=== PATIENT | female | born 1935 | race Caucasian/White ===

== ENCOUNTER 2017-09-14 14:35 | Observation (INO) ==
[~2017-09-14 14:35] MED LIST: ASPIRIN EC 81 MG TABLET PO ONE
[2017-09-14 18:02] LABS: Basophils % 0.5 % (0.0-0.8); Eosinophils # 0.2 10*3/uL (0.0-0.87); Eosinophils % 3.5 % (0.00-10.9); Hematocrit 37.9 VOL% (35.7-47.0); Hemoglobin 12.5 GM/DL (12.0-16.0); Immature Granulocytes % 0.3 %; Immature Granulocytes Absolute 0.02 #; Lymphocytes # 1.6 10*3/uL (1.4-4.0); Lymphocytes % 26.1 % (21.3-54.2); Mean Corpuscular Hemoglobin 29 PG (27-34); Mean Corpuscular Volume 88.1 FL (87-102); Mean Platelet Volume 9.8 FL (9.6-12.0); Monocytes # 0.6 10*3/uL (0.11-0.8); Monocytes % 9.3 % (1.7-12.7); Neutrophils # 3.6 10*3/uL (1.4-7.4); Neutrophils % 60.3 % (38.7-73.9); Platelet Count 177 T/CUMM (130-400); Red Cell Distribution Width 12.9 % (9.3-17.3); White Blood Count 5.9 T/CUMM (4-12)
[2017-09-14 18:36] LABS: Albumin 3.5 G/DL (3.4-5.0); Bilirubin,Total 0.5 MG/DL (0.2-1.0); Osmolality,Calculated 281.4 MOS/KG (273-304); Potassium 4.1 MMOL/L (3.5-5.1); Thyroid Stimulating Hormone 0.291 uIU/ml (0.358-3.74); Total Protein 7.5 G/DL (6.4-8.3); Troponin I Only 0.027 NG/ML (0.00-0.045)
[2017-09-14 18:46] LABS: Barbiturates Screen,Urine Negative (Negative); Benzodiazepines Screen,Urine Negative (Negative); Cannabinoid Screen,Urine Negative (Negative); Opiate Screen,Urine Negative (Negative); Phencyclidine Screen,Urine Negative (Negative)
[2017-09-14 19:35] LABS: Apearance,Urine CLEAR (Clear); Bacteria,Urine Occasional /HPF (Few); Bilirubin,Urine Negative (Negative); Blood, Urine Negative (Negative); Glucose,Urine (UA) Negative (Negative); Ketones,Urine Negative (Negative); Mucus,Urine Occasional /LPF (Occasional); Nitrite,Urine Negative (Negative); Protein,Urine Negative; RBC,Urine 1 /HPF (0-4); Renal Epithelial Cells,Urine Occasional /HPF (<1); Urine Color Yellow (Yellow); Urine Specific Gravity 1.008 (1.001-1.035); Urine Urobilinogen < 2.0 EU/DL (0.2-1.0); WBC,Urine 12 /HPF (0-6)
[2017-09-14] MEDS ORDERED: ONDANSETRON 4 MG/2 ML VIAL IV PRN (20:47)
[2017-09-14] MEDS ORDERED: ACETAMINOPHEN 325 MG TABLET PO PRN (20:47)
[2017-09-14] MEDS ORDERED: traZODone 50 MG TABLET PO PRN (20:47)
[2017-09-14] MEDS ORDERED: hydrALAZINE 20 MG/1 ML VIAL IV PRN (20:55)
[2017-09-14] MEDS ORDERED: ENOXAPARIN 40 MG/0.4 ML SYRINGE SUBCUT SCH (21:00)
[2017-09-14] MEDS ORDERED: LEVOFLOXACIN INJ 500 MG in PREMIX 1 EACH IV SCH (22:00)
[2017-09-14] MEDS ORDERED: NIFEdipine 10 MG CAPSULE PO ONE (23:03)
[2017-09-14] MEDS ORDERED: ASPIRIN CHEW 81 MG TABLET PO ONE (23:49)
[2017-09-15] MEDS: ZAFIRLUKAST 20 MG TABLET PO SCH ×2 (00:14→06:32)
[2017-09-15 03:01] LABS: Basophils % 0.3 % (0.0-0.8); Eosinophils # 0.3 10*3/uL (0.0-0.87); Eosinophils % 4.5 % (0.00-10.9); Hematocrit 34.6 VOL% (35.7-47.0); Hemoglobin 11.3 GM/DL (12.0-16.0); Immature Granulocytes % 0.2 %; Immature Granulocytes Absolute 0.01 #; Lymphocytes # 1.3 10*3/uL (1.4-4.0); Mean Corpuscular HGB Conc 32.7 GM/DL (32-36); Mean Corpuscular Hemoglobin 29 PG (27-34); Mean Corpuscular Volume 89.6 FL (87-102); Mean Platelet Volume 9.7 FL (9.6-12.0); Monocytes # 0.7 10*3/uL (0.11-0.8); Monocytes % 11.4 % (1.7-12.7); Neutrophils # 3.8 10*3/uL (1.4-7.4); Neutrophils % 62.6 % (38.7-73.9); Platelet Count 158 T/CUMM (130-400); Red Blood Count 3.86 MC/CUMM (3.8-5.5); Red Cell Distribution Width 12.8 % (9.3-17.3); White Blood Count 6.1 T/CUMM (4-12)
[2017-09-15 03:25] LABS: Calcium 8.3 MG/DL (8.5-10.1); Osmolality,Calculated 283.1 MOS/KG (273-304); Potassium 3.8 MMOL/L (3.5-5.1); Risk Ratio 2.18; VLDL CHOLESTEROL 9.4 MG/DL
[2017-09-15 03:28] LABS: Troponin I Only 0.044 NG/ML (0.00-0.045)
[2017-09-15 03:30] LABS: Troponin I Only 0.047 NG/ML (0.00-0.045)
[2017-09-15 04:14] LABS: Folate 23.5 NG/ML (5.4-24.0); Vitamin B12 933 PG/ML (211-911)
[2017-09-15] MEDS ORDERED: LEVOTHYROXINE 50 MCG TABLET PO SCH (06:30)
[2017-09-15] MEDS ORDERED: ZAFIRLUKAST 20 MG TABLET PO SCH (07:30)
[2017-09-15] MEDS ORDERED: LISINOPRIL 20 MG TABLET PO SCH (09:00)
[2017-09-15] MEDS ORDERED: ASPIRIN EC 81 MG TABLET PO SCH (09:00)
[2017-09-15] MEDS ORDERED: ASCORBIC ACID 500 MG TABLET PO SCH (11:00)
[2017-09-15 11:26] VITALS: BP 149/54
[2017-09-15 14:21] LABS: Sedimentation Rate-Westergren 22 MM/HR (0-30)
[2017-09-15] MEDS ORDERED: ZAFIRLUKAST 20 MG TABLET PO ONE (23:07)
[2017-09-17 09:11] LABS: Hemoglobin A1 (Alkaline) 97.2 % (96.5-98.5); Hemoglobin A2 (Alkaline) 2.8 % (1.5-3.5)
== END 2017-09-15 14:44 | disposition home or self-care (01) ==
LOC: N.EDINP 14:35 → N.ED 14:35 → N.TELEN 21:24
PROVIDERS: ADMIT Hospitalist; ATTEND Hospitalist

== ENCOUNTER 2018-05-19 21:38 | Inpatient (IN) ==
[2018-05-19] MEDS ORDERED: DILTIAZEM 25 MG/5 ML VIAL IV ONE (22:02)
[2018-05-19] MEDS ORDERED: DILTIAZEM 50 MG/10 ML VIAL IV STA (22:04)
[2018-05-19] MEDS ORDERED: AMIODARONE INJ 150 MG in DEXTROSE 5% 100 ML IV ONE (22:14)
[2018-05-19] MEDS ORDERED: AMIODARONE 150 MG/3 ML VIAL ONE (22:15)
[2018-05-19 22:19] LABS: Basophils % 0.7 % (0.0-0.8); Eosinophils # 0.6 10*3/uL (0.0-0.87); Hematocrit 33.9 VOL% (35.7-47.0); Hemoglobin 10.5 GM/DL (12.0-16.0); Immature Granulocytes % 0.3 %; Immature Granulocytes Absolute 0.02 #; Lymphocytes # 1.2 10*3/uL (1.4-4.0); Lymphocytes % 20.3 % (21.3-54.2); Mean Corpuscular Hemoglobin 30 PG (27-34); Mean Corpuscular Volume 95.2 FL (87-102); Mean Platelet Volume 9.1 FL (9.6-12.0); Monocytes # 0.8 10*3/uL (0.11-0.8); Monocytes % 13.3 % (1.7-12.7); Neutrophils # 3.4 10*3/uL (1.4-7.4); Neutrophils % 55.4 % (38.7-73.9); Platelet Count 182 T/CUMM (130-400); Red Blood Count 3.56 MC/CUMM (3.8-5.5); Red Cell Distribution Width 12.9 % (9.3-17.3); White Blood Count 6.1 T/CUMM (4-12)
[2018-05-19] MEDS ORDERED: dilTIAZem Drip 125 MG/125 ML PREMIX IV SCH (22:30)
[2018-05-19] MEDS ORDERED: AMIODARONE INJ 450 MG in DEXTROSE 5% 241 ML IV SCH (22:30)
[2018-05-19 22:59] LABS: Alanine Aminotransferase 24 U/L (13-56); Albumin 3.4 G/DL (3.4-5.0); Alkaline Phosphatase 88 U/L (45-117); Aspartate Amino Transferase 28 U/L (0-37); Bilirubin,Total < 0.39 MG/DL (0.2-1.0); Blood Urea Nitrogen 22 MG/DL (7-18); Calcium 8.1 MG/DL (8.5-10.1); Glucose 154 MG/DL (74-106); Osmolality,Calculated 280.7 MOS/KG (273-304); Potassium 4.3 MMOL/L (3.5-5.1); Sodium 138 MMOL/L (136-145); Total Protein 6.8 G/DL (6.4-8.3)
[2018-05-20] MEDS ORDERED: ACETAMINOPHEN 325 MG TABLET PO PRN (01:32)
[2018-05-20] MEDS ORDERED: ONDANSETRON 4 MG/2 ML VIAL IV PRN (01:32)
[2018-05-20] MEDS ORDERED: SODIUM CHLORIDE 0.9% 1,000 ML IV SCH (02:00)
[2018-05-20 05:26] LABS: Basophils % 0.6 % (0.0-0.8); Eosinophils # 0.6 10*3/uL (0.0-0.87); Eosinophils % 8.1 % (0.00-10.9); Hemoglobin 10.2 GM/DL (12.0-16.0); Immature Granulocytes % 0.1 %; Immature Granulocytes Absolute 0.01 #; Lymphocytes % 15.1 % (21.3-54.2); Mean Corpuscular HGB Conc 31.9 GM/DL (32-36); Mean Corpuscular Hemoglobin 30 PG (27-34); Mean Platelet Volume 9.6 FL (9.6-12.0); Monocytes # 0.9 10*3/uL (0.11-0.8); Monocytes % 12.7 % (1.7-12.7); Neutrophils # 4.3 10*3/uL (1.4-7.4); Neutrophils % 63.4 % (38.7-73.9); Platelet Count 181 T/CUMM (130-400); Red Blood Count 3.44 MC/CUMM (3.8-5.5); White Blood Count 6.8 T/CUMM (4-12)
[2018-05-20 05:54] LABS: Calcium 8.7 MG/DL (8.5-10.1); Osmolality,Calculated 276.7 MOS/KG (273-304); Potassium 4.3 MMOL/L (3.5-5.1); Thyroid Stimulating Hormone 1.45 uIU/ml (0.358-3.74)
[2018-05-20] MEDS ORDERED: AMIODARONE 450 MG/9 ML VIAL IV ONE (07:48)
[2018-05-20] MEDS ORDERED: AMIODARONE INJ 150 MG in DEXTROSE 5% 100 ML IV ONE (08:33)
[2018-05-20] MEDS: ASCORBIC ACID 500 MG TABLET PO SCH ×2 (13:19→21:41)
[2018-05-20] MEDS: LEVOTHYROXINE 50 MCG TABLET PO SCH (13:19)
[2018-05-20] MEDS: APIXABAN 2.5 MG TABLET PO SCH ×2 (13:19→21:41)
[2018-05-20] MEDS ORDERED: ALBUTEROL/IPRATROPIUM 3 ML NEB RESP TX PRN (13:47)
[2018-05-20 15:40] LABS: CKMB % 5.5 %; Troponin I 0.284 NG/ML (0.00-0.045)
[2018-05-20] MEDS ORDERED: FUROSEMIDE 40 MG/4 ML VIAL IV ONE (16:36)
[2018-05-20] MEDS ORDERED: methylPREDNISolone SOD SUC 40 MG/1 ML VIAL IV ONE (16:36)
[2018-05-20] MEDS ORDERED: LEVOFLOXACIN INJ 500 MG in PREMIX 1 EACH IV SCH (17:00)
[2018-05-20] MEDS ORDERED: LEVOFLOXACIN INJ 500 MG in PREMIX 1 EACH IV ONE (17:00)
[2018-05-20] MEDS ORDERED: AZITHROMYCIN INJ 500 MG in SODIUM CHLORIDE 0.9% 250 ML IV SCH (17:00)
[2018-05-20] MEDS: ZAFIRLUKAST 20 MG TABLET PO SCH (21:40)
[2018-05-20] MEDS: ASPIRIN EC 81 MG TABLET PO SCH (21:41)
[2018-05-20] MEDS: AMIODARONE 200 MG TABLET PO SCH (21:41)
[2018-05-21 05:23] LABS: Hematocrit 33.5 VOL% (35.7-47.0); Hemoglobin 10.6 GM/DL (12.0-16.0); Immature Granulocytes % 0.4 %; Immature Granulocytes Absolute 0.03 #; Lymphocytes # 0.4 10*3/uL (1.4-4.0); Lymphocytes % 5.8 % (21.3-54.2); Mean Corpuscular HGB Conc 31.6 GM/DL (32-36); Mean Corpuscular Hemoglobin 29 PG (27-34); Mean Platelet Volume 9.7 FL (9.6-12.0); Monocytes # 0.1 10*3/uL (0.11-0.8); Monocytes % 1.7 % (1.7-12.7); Neutrophils # 6.3 10*3/uL (1.4-7.4); Neutrophils % 92.1 % (38.7-73.9); Platelet Count 183 T/CUMM (130-400); Red Blood Count 3.64 MC/CUMM (3.8-5.5); Red Cell Distribution Width 12.6 % (9.3-17.3); White Blood Count 6.9 T/CUMM (4-12)
[2018-05-21 05:30] LABS: Calcium 8.1 MG/DL (8.5-10.1); Osmolality,Calculated 276.1 MOS/KG (273-304); Potassium 4.3 MMOL/L (3.5-5.1)
[2018-05-21 05:32] LABS: Calcium 7.9 MG/DL (8.5-10.1); Osmolality,Calculated 275.2 MOS/KG (273-304); Potassium 4.2 MMOL/L (3.5-5.1)
[2018-05-21 06:22] LABS: Band Neutrophils 3 % (0-10); Lymphocytes 6 % (20-55); Platelet Estimate Normal; Segmented Neutrophils 89 % (50-85); Total Cells Counted 100
[2018-05-21] MEDS: LEVOTHYROXINE 50 MCG TABLET PO SCH (06:40)
[2018-05-21] MEDS ORDERED: MAGNESIUM SULF RIDER 2 GM in PREMIX 1 EACH IV ONE ×2 (08:12→10:41)
[2018-05-21] MEDS: ASCORBIC ACID 500 MG TABLET PO SCH ×2 (08:48→21:42)
[2018-05-21] MEDS: AMIODARONE 200 MG TABLET PO SCH ×2 (08:48→21:43)
[2018-05-21] MEDS: MULTIVITAMIN (CENTRUM) TABLET PO SCH (08:49)
[2018-05-21] MEDS: APIXABAN 2.5 MG TABLET PO SCH ×2 (08:49→21:43)
[2018-05-21] MEDS: CALCIUM (CARBONATE)/VITAMIN D 500 MG-200 UNIT TABLET PO SCH (08:49)
[2018-05-21] MEDS: LISINOPRIL 20 MG TABLET PO SCH (08:49)
[2018-05-21] MEDS: MAGNESIUM OXIDE 400 MG TABLET PO SCH (08:49)
[2018-05-21] MEDS ORDERED: ASCORBIC ACID 500 MG TABLET PO SCH (09:00)
[2018-05-21] MEDS ORDERED: LEVOFLOXACIN INJ 250 MG in PREMIX 1 EACH IV SCH (17:00)
[2018-05-21] MEDS: ZAFIRLUKAST 20 MG TABLET PO SCH (21:43)
[2018-05-21] MEDS: ASPIRIN EC 81 MG TABLET PO SCH (21:43)
[2018-05-22 05:34] LABS: Calcium 8.2 MG/DL (8.5-10.1); Osmolality,Calculated 276.5 MOS/KG (273-304); Potassium 4.3 MMOL/L (3.5-5.1)
[2018-05-22] MEDS: LEVOTHYROXINE 50 MCG TABLET PO SCH (06:14)
[2018-05-22] MEDS: ASCORBIC ACID 500 MG TABLET PO SCH ×2 (09:30→21:06)
[2018-05-22] MEDS: ROSUVASTATIN 10 MG TABLET PO SCH (09:30)
[2018-05-22] MEDS: LISINOPRIL 20 MG TABLET PO SCH (09:31)
[2018-05-22] MEDS: AMIODARONE 200 MG TABLET PO SCH (09:31)
[2018-05-22] MEDS: MAGNESIUM OXIDE 400 MG TABLET PO SCH (09:31)
[2018-05-22] MEDS: APIXABAN 2.5 MG TABLET PO SCH ×2 (09:31→21:05)
[2018-05-22] MEDS: MULTIVITAMIN (CENTRUM) TABLET PO SCH (09:31)
[2018-05-22] MEDS: CALCIUM (CARBONATE)/VITAMIN D 500 MG-200 UNIT TABLET PO SCH (09:31)
[2018-05-22] MEDS ORDERED: FUROSEMIDE 20 MG/2 ML VIAL IV ONE (10:59)
[2018-05-22] MEDS: MAGNESIUM HYDROXIDE SUSP 30 ML UDCUP PO PRN (14:15)
[2018-05-22] MEDS: ASPIRIN EC 81 MG TABLET PO SCH (21:05)
[2018-05-22] MEDS: ZAFIRLUKAST 20 MG TABLET PO SCH (21:05)
[2018-05-23 05:09] LABS: Basophils # 0.1 10*3/uL (0.0-0.2); Basophils % 0.5 % (0.0-0.8); Eosinophils # 0.8 10*3/uL (0.0-0.87); Eosinophils % 8.1 % (0.00-10.9); Hematocrit 31.5 VOL% (35.7-47.0); Immature Granulocytes % 0.4 %; Immature Granulocytes Absolute 0.04 #; Lymphocytes # 1.2 10*3/uL (1.4-4.0); Lymphocytes % 13.3 % (21.3-54.2); Mean Corpuscular HGB Conc 31.7 GM/DL (32-36); Mean Corpuscular Hemoglobin 29 PG (27-34); Mean Corpuscular Volume 91.6 FL (87-102); Mean Platelet Volume 9.4 FL (9.6-12.0); Monocytes % 10.9 % (1.7-12.7); Neutrophils # 6.2 10*3/uL (1.4-7.4); Neutrophils % 66.8 % (38.7-73.9); Platelet Count 237 T/CUMM (130-400); Red Blood Count 3.44 MC/CUMM (3.8-5.5); Red Cell Distribution Width 13.1 % (9.3-17.3); White Blood Count 9.2 T/CUMM (4-12)
[2018-05-23 05:23] LABS: Calcium 8.1 MG/DL (8.5-10.1); Osmolality,Calculated 286.7 MOS/KG (273-304); Potassium 4.5 MMOL/L (3.5-5.1)
[2018-05-23 05:35] LABS: Troponin I 0.127 NG/ML (0.00-0.045)
[2018-05-23] MEDS: LEVOTHYROXINE 50 MCG TABLET PO SCH (06:38)
[2018-05-23] MEDS: ASCORBIC ACID 500 MG TABLET PO SCH ×2 (09:11→20:53)
[2018-05-23] MEDS: MULTIVITAMIN (CENTRUM) TABLET PO SCH (09:12)
[2018-05-23] MEDS: APIXABAN 2.5 MG TABLET PO SCH ×2 (09:12→20:52)
[2018-05-23] MEDS: MAGNESIUM OXIDE 400 MG TABLET PO SCH (09:12)
[2018-05-23] MEDS: CALCIUM (CARBONATE)/VITAMIN D 500 MG-200 UNIT TABLET PO SCH (09:12)
[2018-05-23] MEDS: MAGNESIUM HYDROXIDE SUSP 30 ML UDCUP PO PRN (20:52)
[2018-05-23] MEDS: ZAFIRLUKAST 20 MG TABLET PO SCH (20:53)
[2018-05-23] MEDS: ASPIRIN EC 81 MG TABLET PO SCH (20:53)
[2018-05-24 05:01] LABS: Basophils % 0.4 % (0.0-0.8); Eosinophils # 0.8 10*3/uL (0.0-0.87); Eosinophils % 10.7 % (0.00-10.9); Hematocrit 32.5 VOL% (35.7-47.0); Hemoglobin 10.4 GM/DL (12.0-16.0); Immature Granulocytes % 0.4 %; Immature Granulocytes Absolute 0.03 #; Lymphocytes # 1.2 10*3/uL (1.4-4.0); Lymphocytes % 15.4 % (21.3-54.2); Mean Corpuscular Hemoglobin 29 PG (27-34); Mean Corpuscular Volume 91.5 FL (87-102); Mean Platelet Volume 9.2 FL (9.6-12.0); Monocytes # 0.9 10*3/uL (0.11-0.8); Monocytes % 12.6 % (1.7-12.7); Neutrophils # 4.5 10*3/uL (1.4-7.4); Neutrophils % 60.5 % (38.7-73.9); Platelet Count 244 T/CUMM (130-400); Red Blood Count 3.55 MC/CUMM (3.8-5.5); Red Cell Distribution Width 12.9 % (9.3-17.3); White Blood Count 7.5 T/CUMM (4-12)
[2018-05-24 05:28] LABS: Calcium 8.3 MG/DL (8.5-10.1); Osmolality,Calculated 284.7 MOS/KG (273-304); Potassium 4.4 MMOL/L (3.5-5.1)
[2018-05-24] MEDS: LEVOTHYROXINE 50 MCG TABLET PO SCH (05:41)
[2018-05-24] MEDS: MULTIVITAMIN (CENTRUM) TABLET PO SCH (09:48)
[2018-05-24] MEDS: APIXABAN 2.5 MG TABLET PO SCH (09:48)
[2018-05-24] MEDS: ASCORBIC ACID 500 MG TABLET PO SCH (09:48)
[2018-05-24] MEDS: ROSUVASTATIN 10 MG TABLET PO SCH (09:49)
[2018-05-24] MEDS: MAGNESIUM OXIDE 400 MG TABLET PO SCH (09:49)
[2018-05-24] MEDS: CALCIUM (CARBONATE)/VITAMIN D 500 MG-200 UNIT TABLET PO SCH (09:57)
[2018-05-24 12:27] VITALS: BP 124/88
[2018-05-24] MEDS ORDERED: DIGOXIN 0.125 MG TABLET PO SCH (13:00)
== END 2018-05-24 14:45 | disposition home or self-care (01) | DRG 310 ==
LOC: N.EDINP 21:38 → N.ED 21:38 → SUATTDRO 05-20 00:34 → N.TELES 05-20 00:58 → SUATTDRO 05-20 11:55
PROVIDERS: ADMIT Internal Medicine; ATTEND Internal Medicine

== ENCOUNTER 2021-05-13 11:25 | Inpatient (IN) ==
[2021-05-13 12:55] LABS: Basophils % 0.2 % (0.0-0.8); Eosinophils # 0.1 10*3/uL (0.0-0.87); Eosinophils % 0.5 % (0.00-10.9); Hematocrit 38.5 VOL% (35.7-47.0); Hemoglobin 12.1 GM/DL (12.0-16.0); Immature Granulocytes % 0.4 %; Immature Granulocytes Absolute 0.05 #; Lymphocytes # 0.8 10*3/uL (1.4-4.0); Lymphocytes % 5.9 % (21.3-54.2); Mean Corpuscular HGB Conc 31.4 GM/DL (32-36); Mean Corpuscular Volume 91.2 FL (87-102); Mean Platelet Volume 9.7 FL (9.6-12.0); Monocytes % 7.5 % (1.7-12.7); Neutrophils % 85.5 % (38.7-73.9); Platelet Count 171 T/CUMM (130-400); Red Blood Count 4.22 MC/CUMM (3.8-5.5)
[2021-05-13 13:09] LABS: Alanine Aminotransferase 17 U/L (13-56); Albumin 3.8 G/DL (3.4-5.0); Alkaline Phosphatase 104 U/L (45-117); Aspartate Amino Transferase 19 U/L (0-37); Blood Urea Nitrogen 26 MG/DL (7-18); Carbon Dioxide 24 MMOL/L (21-32); Estimated Glom Filtration Rate 31 ML/MIN; Glucose 141 MG/DL (74-106); Osmolality,Calculated 274.2 MOS/KG (273-304); Potassium 3.9 MMOL/L (3.5-5.1); Sodium 134 MMOL/L (136-145); Total Protein 8.2 G/DL (6.4-8.2)
[2021-05-13] MEDS ORDERED: SODIUM CHLORIDE 0.9% 1,000 ML IV STA (14:41)
[2021-05-13] MEDS ORDERED: GLUCAGON 1 MG VIAL IM PRN (15:24)
[2021-05-13] MEDS ORDERED: ONDANSETRON 4 MG/2 ML VIAL IV PRN (15:24)
[2021-05-13] MEDS ORDERED: cefTRIAXone 1,000 MG in SODIUM CHLORIDE 0.9% 100 ML IV STA (15:27)
[2021-05-13] MEDS ORDERED: DEXTROSE 10% 250 ML BAG IV PRN (15:30)
[2021-05-13] MEDS ORDERED: ENOXAPARIN 30 MG/0.3 ML SYRINGE SUBCUT SCH (16:00)
[2021-05-13] MEDS: SODIUM CHLORIDE 0.9% 1,000 ML IV SCH (18:46)
[2021-05-13] MEDS: ACETAMINOPHEN 325 MG TABLET PO PRN (21:52)
[2021-05-13 23:47] LABS: Urine Appearance SL CLOUDY (Clear); Urine Color Yellow (Yellow); Urine Specific Gravity 1.015 (1.001-1.035); Urine pH 5.5 (4.5-8.0)
[2021-05-13 23:48] LABS: Bilirubin,Urine Negative (Negative); Blood, Urine Trace mg/dL (Negative); Glucose,Urine (UA) Negative (Negative); Ketones,Urine Negative (Negative); Nitrite,Urine Positive (Negative); Protein,Urine Trace mg/dL (Negative); Urine Urobilinogen 0.2 eU/dL (<2.0)
[2021-05-13 23:52] LABS: Mucus,Urine Occasional /LPF (Occasional); RBC,Urine 2 /HPF (0-4); Squamous Epithelial Cell,Urine Occasional /HPF (0-10)
[2021-05-14 06:00] LABS: Basophils % 0.3 % (0.0-0.8); Eosinophils # 0.1 10*3/uL (0.0-0.87); Eosinophils % 1.5 % (0.00-10.9); Hematocrit 29.5 VOL% (35.7-47.0); Hemoglobin 9.3 GM/DL (12.0-16.0); Immature Granulocytes % 0.5 %; Immature Granulocytes Absolute 0.04 #; Lymphocytes # 0.9 10*3/uL (1.4-4.0); Lymphocytes % 11.4 % (21.3-54.2); Mean Corpuscular HGB Conc 31.5 GM/DL (32-36); Mean Corpuscular Volume 92.5 FL (87-102); Mean Platelet Volume 9.4 FL (9.6-12.0); Monocytes % 9.3 % (1.7-12.7); Platelet Count 124 T/CUMM (130-400); Red Blood Count 3.19 MC/CUMM (3.8-5.5)
[2021-05-14 06:18] LABS: Osmolality,Calculated 276.8 MOS/KG (273-304); Potassium 4.1 MMOL/L (3.5-5.1)
[2021-05-14] MEDS: SODIUM CHLORIDE 0.9% 1,000 ML IV SCH ×4 (06:19→23:41)
[2021-05-14] MEDS: OXYBUTYNIN XL 5 MG TABLET PO SCH (08:50)
[2021-05-14] MEDS: ASPIRIN EC 81 MG TABLET PO SCH (08:50)
[2021-05-14] MEDS: MEMANTINE 10 MG TABLET PO SCH ×2 (08:50→21:15)
[2021-05-14] MEDS ORDERED: VANCOMYCIN INJ 1,000 MG in SODIUM CHLORIDE 0.9% 250 ML IV PRN (15:59)
[2021-05-14] MEDS ORDERED: VANCOMYCIN INJ 1,000 MG in SODIUM CHLORIDE 0.9% 250 ML IV SCH (16:00)
[2021-05-14] MEDS: cefTRIAXone 1,000 MG in SODIUM CHLORIDE 0.9% 100 ML IV SCH (16:01)
[2021-05-14] MEDS ORDERED: VANCOMYCIN INJ 1,000 MG in SODIUM CHLORIDE 0.9% 250 ML IV ONE (18:00)
[2021-05-14] MEDS: DONEPEZIL 10 MG TABLET PO SCH (21:15)
[2021-05-14] MEDS: APIXABAN 2.5 MG TABLET PO SCH (21:15)
[2021-05-14] MEDS: QUEtiapine 25 MG TABLET PO SCH (21:15)
[2021-05-14] MEDS: ACETAMINOPHEN 325 MG TABLET PO PRN (21:15)
[2021-05-15] MEDS: SODIUM CHLORIDE 0.9% 1,000 ML IV SCH ×2 (00:18→13:35)
[2021-05-15 05:09] LABS: Basophils % 0.3 % (0.0-0.8); Eosinophils # 0.1 10*3/uL (0.0-0.87); Eosinophils % 1.4 % (0.00-10.9); Hematocrit 28.7 VOL% (35.7-47.0); Hemoglobin 9.1 GM/DL (12.0-16.0); Immature Granulocytes % 0.3 %; Immature Granulocytes Absolute 0.02 #; Lymphocytes # 0.9 10*3/uL (1.4-4.0); Lymphocytes % 13.9 % (21.3-54.2); Mean Corpuscular HGB Conc 31.7 GM/DL (32-36); Mean Corpuscular Volume 91.4 FL (87-102); Mean Platelet Volume 9.6 FL (9.6-12.0); Neutrophils % 71.1 % (38.7-73.9); Platelet Count 129 T/CUMM (130-400); Red Blood Count 3.14 MC/CUMM (3.8-5.5); Red Cell Distribution Width 14.9 % (9.3-17.3); White Blood Count 6.4 T/CUMM (4-12)
[2021-05-15 05:26] LABS: Calcium 8.1 MG/DL (8.5-10.1); Osmolality,Calculated 278.7 MOS/KG (273-304); Potassium 4.3 MMOL/L (3.5-5.1)
[2021-05-15 05:50] LABS: Risk Ratio 2.76; Thyroid Stimulating Hormone 1.86 uIU/ml (0.358-3.74); VLDL Cholesterol 13.2 MG/DL
[2021-05-15 06:13] LABS: Sedimentation Rate-Westergren 77 MM/HR (0-30)
[2021-05-15] MEDS: LEVOTHYROXINE 50 MCG TABLET PO SCH (06:15)
[2021-05-15] MEDS ORDERED: FUROSEMIDE 20 MG/2 ML VIAL IV ONE (08:01)
[2021-05-15] MEDS ORDERED: ROSUVASTATIN 10 MG TABLET PO SCH (08:12)
[2021-05-15] MEDS ORDERED: CITALOPRAM 40 MG TABLET PO SCH (09:00)
[2021-05-15] MEDS: MEMANTINE 10 MG TABLET PO SCH ×2 (10:14→20:29)
[2021-05-15] MEDS: OXYBUTYNIN XL 5 MG TABLET PO SCH (10:14)
[2021-05-15] MEDS: ASPIRIN EC 81 MG TABLET PO SCH (10:14)
[2021-05-15] MEDS: APIXABAN 2.5 MG TABLET PO SCH ×2 (10:14→20:29)
[2021-05-15] MEDS: cefTRIAXone 1,000 MG in SODIUM CHLORIDE 0.9% 100 ML IV SCH (15:14)
[2021-05-15] MEDS: DONEPEZIL 10 MG TABLET PO SCH (20:29)
[2021-05-15] MEDS: QUEtiapine 25 MG TABLET PO SCH (20:29)
[2021-05-16 05:05] LABS: Basophils % 0.5 % (0.0-0.8); Eosinophils # 0.4 10*3/uL (0.0-0.87); Hematocrit 28.7 VOL% (35.7-47.0); Hemoglobin 9.3 GM/DL (12.0-16.0); Immature Granulocytes % 0.3 %; Immature Granulocytes Absolute 0.02 #; Lymphocytes % 16.2 % (21.3-54.2); Mean Corpuscular HGB Conc 32.4 GM/DL (32-36); Mean Corpuscular Volume 90.3 FL (87-102); Monocytes % 13.7 % (1.7-12.7); Neutrophils % 63.3 % (38.7-73.9); Platelet Count 151 T/CUMM (130-400); Red Blood Count 3.18 MC/CUMM (3.8-5.5); Red Cell Distribution Width 14.7 % (9.3-17.3); White Blood Count 6.1 T/CUMM (4-12)
[2021-05-16 05:21] LABS: Calcium 8.1 MG/DL (8.5-10.1); Potassium 3.9 MMOL/L (3.5-5.1)
[2021-05-16] MEDS: LEVOTHYROXINE 50 MCG TABLET PO SCH (05:41)
[2021-05-16] MEDS: MEMANTINE 10 MG TABLET PO SCH (08:44)
[2021-05-16] MEDS: APIXABAN 2.5 MG TABLET PO SCH (08:44)
[2021-05-16] MEDS: OXYBUTYNIN XL 5 MG TABLET PO SCH (08:44)
[2021-05-16] MEDS: ASPIRIN EC 81 MG TABLET PO SCH (08:44)
[2021-05-16 13:05] VITALS: BP 134/72
== END 2021-05-16 13:08 | disposition home health service (06) | DRG 871 ==
LOC: SUATTDRO → N.ED 11:25 → N.EDINP 15:24 → SUATTDRO 15:24 → N.EDINP 05-14 00:17
PROVIDERS: ADMIT Family Medicine; ATTEND Internal Medicine